=== PATIENT | male | born 1985 | race Caucasian/White ===

== ENCOUNTER 2019-03-18 15:10 | Emergency (ER) | payer OTHER ==
[2019-03-18] MEDS ORDERED: Bacitracin Oint 1 GM U/D Packet TOP ONE (15:43)
--- NOTE | 2019-03-18 15:49 | EDM.PDOC ---
ED HPI GENERAL MEDICAL PROBLEM - General Chief Complaint: Laceration Stated Complaint: CUT HEAD Time Seen by Provider: 03/18/19 15:35 Source of Information: Reports: Patient, RN History Limitations: Reports: No Limitations - History of Present Illness INITIAL COMMENTS - FREE TEXT/NARRATIVE: 33 yo male dropped a nailer onto the top of his head from a height of about 4 ft. He incurred no LOC, nausea, neck pain or LONG. He did have some bleeding so came for eval. Tetanus was less than 10 yrs ago. 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: Other (see below) (none) - Related Data Allergies Allergy/AdvReac Type Severity Reaction Status Date / Time No Known Allergies Allergy Verified 03/18/19 15:41 Home Meds: Home Meds NK [No Known Home Meds] 03/18/19 [History] Social & Family History - Tobacco Use Smoking Status *Q: Never Smoker - Caffeine Use Caffeine Use: Reports: Coffee, Energy Drinks, Soda - Recreational Drug Use Recreational Drug Use: No ED ROS GENERAL - Review of Systems Review Of Systems: See Below Constitutional: Reports: No Symptoms HEENT: Reports: No Symptoms Respiratory: Reports: No Symptoms Cardiovascular: Denies: Syncope GI/Abdominal: Denies: Nausea, Vomiting Musculoskeletal: Denies: Neck Pain Skin: Reports: Wound (deep abrasion to top of head about 1.5 cm in diameter. Bleeding stopped on arrival. ) Neurological: Denies: Confusion, Dizziness, Headache, Syncope ED EXAM, SKIN/RASH Exam: See Below Exam Limited By: No Limitations General Appearance: Alert, WD/WN, No Apparent Distress Eye Exam: Bilateral Eye: Normal Inspection Ears: Normal External Exam, Normal Canal, Hearing Grossly Normal, Normal TMs Nose: Normal Inspection, No Blood Throat/Mouth: Normal Inspection, Normal Lips, Normal Oropharynx, Normal Voice, No Airway Compromise Head: Normocephalic, Other (deep abrasion to the top of his head about 1.5 cm in diameter.) Neck: Normal Inspection, Supple, Non-Tender, Full Range of Motion Respiratory/Chest: No Respiratory Distress Extremities: Normal Inspection Neurological: Alert, Oriented, CN II-XII Intact, Normal Cognition, No Motor/ Sensory Deficits Skin: Warm, Dry, Normal Color, No Rash, Other (1.5 cm scalp abrasion at vertex.) Location, Skin: Head Associated features: Tenderness. No: Warmth, Swelling, Induration, Lymphangitis , Inflammation Course - Vital Signs Last Recorded V/S: Last Vital Signs Temp 36.3 C 03/18/19 15:41 Pulse 94 03/18/19 15:41 Resp 16 03/18/19 15:41 BP 140/81 03/18/19 15:41 Pulse Ox 96 03/18/19 15:41 - Orders/Labs/Meds Meds: Medications Discontinued Medications Generic Name Dose Route Start Last Admin Trade Name Ronn PRN Reason Stop Dose Admin Bacitracin 1 dose 03/18/19 15:43 Bacitracin Oint 1 Gm TOP 03/18/19 15:44 ONETIME ONE Departure - Departure Time of Disposition: 15:55 Disposition: Home, Self-Care 01 Condition: Good Clinical Impression: Scalp abrasion Qualifiers: Encounter type: initial encounter Qualified Code(s): S00.01XA - Abrasion of scalp, initial encounter - Discharge Information *PRESCRIPTION DRUG MONITORING PROGRAM REVIEWED*: No *COPY OF PRESCRIPTION DRUG MONITORING REPORT IN PATIENT BRIANNA: No Referrals: PCP,None [Primary Care Provider] - Additional Instructions: Clean area twice daily with either soap and water or 1/2 water and 1/2 peroxide. Dry. Apply antibiotic ointment. Use acetaminophen as needed for pain relief. Recheck for signs of infection.
== END 2019-03-18 15:58 | disposition home or self-care (01) ==
LOC: JP.ED 15:10
DX: S00.01XA Abrasion of scalp, initial encounter (principal); W20.8XXA Other cause of strike by thrown, projected or falling object, initial encounter
CPT/HCPCS: 99282